=== PATIENT | male | born 1955 | race African-American/Black ===

== ENCOUNTER 2018-03-29 08:31 | Observation (INO) ==
[2018-03-29] MEDS ORDERED: Sod Chloride 0.9% Inj 1,000 ML IV.SIG ONE (08:49)
[2018-03-29] MEDS ORDERED: Morphine Sulfate Inj 8 MG/ML Vial IV.PUSH ONE (08:49)
--- NOTE | 2018-03-29 09:13 | ED ---
HPI General Chief Complaint: Abdominal Pain Stated Complaint: Abd pain Time Seen by Provider: 03/29/18 08:43 Source: patient Mode of arrival: ambulatory Limitations: no limitations History of Present Illness HPI narrative: 61 yo M c/o abdominal pain on the right side starting at approx 4am, four hours prior to ED arrival. Pt vomiting once this am. He was able to eat a balogna sandwich this morning. No fever. Similar though less severe pain was experienced approx 4-5 days prior. No diarrhea. Pt denies abnormal/ suspicious foods. Severity moderate. No cp/sob. Pt denies PMH. + Smokes tobacco. Occasional etoh. Related Data Home Medications Medication Instructions Recorded Confirmed duloxetine 60 mg PO DAILY 03/29/18 03/29/18 lisinopril 20 mg PO DAILY 03/29/18 03/29/18 Allergies Allergy/AdvReac Type Severity Reaction Status Date / Time tuberculin,PPD,multi-puncture Allergy Rash Verified 03/29/18 09:12 Review of Systems ROS: all other systems reviewed are negative Constitutional Denies fever(s) [facility] Medical History Medical History Depression (Acute) HTN (hypertension) (Acute) Spontaneous pneumothorax (Acute) Surgical History Surgical History No history of previous surgery (Acute) Social History Social History Substance History: Active Abuse Second Hand Smoke Exposure: Yes Smoking Status: Current every day smoker Tobacco Type: Cigarettes and Cigars How Often Do You Have a Drink Containing Alcohol: 2 to 4 times a month Recent Out of Country Travel within the Last 8 Weeks: No Exam Narrative Exam Narrative: GENERAL: 62 yo M, WNWD, mild distress 2/2 abdominal pain, n/v. SKIN: Focused skin assessment warm/dry. HEAD: Atraumatic. Normocephalic. EYES: Pupils equal and round. No scleral icterus. No injection or drainage. ENT: No nasal bleeding or discharge. Mucous membranes pink and moist. NECK: Trachea midline. No JVD. CARDIOVASCULAR: Regular rate and rhythm. No murmur appreciated. RESPIRATORY: No accessory muscle use. Clear to auscultation. Breath sounds equal bilaterally. GASTROINTESTINAL: Soft. +TTP right abdomen. MUSCULOSKELETAL: No obvious deformities. No clubbing. No cyanosis. No edema. NEUROLOGICAL: Awake and alert. No obvious cranial nerve deficits. Motor grossly within normal limits. Normal speech. PSYCHIATRIC: Appropriate mood and affect; insight and judgment normal. Course Initial Documented Vital Signs Temperature 97.5 F L 03/29/18 08:39 Pulse Rate 84 03/29/18 08:39 Respiratory Rate 16 03/29/18 08:39 Blood Pressure 115/79 03/29/18 08:39 Pulse Oximetry 97 03/29/18 08:39 Last Documented Vital Signs Temperature 97.5 F L 03/29/18 08:39 Pulse Rate 97 H 03/29/18 10:59 Respiratory Rate 21 03/29/18 10:59 Blood Pressure 158/94 H 03/29/18 10:59 Pulse Oximetry 97 03/29/18 10:59 Medical Decision Making MDM Narrative Medical decision making narrative: Pt has acute appendicitis. d/w Dr Capellan for general surgery: admit to medicine with plan for OR today. Abdomen is TTP on right side. No peritonitis. Zosyn 4.5g x 1 in ED. Last PO 2AM yesterday. Medical Screen Exam Complete: Yes Emergency Medical Condition: Yes Differential Diagnosis Differential Diagnosis: Constipation, Gastritis, Acute Cholecystitis, Biliary Colic, Pancreatitis, PEREIRA, Hepatitis, Bowel Obstruction, Cystitis, Mesenteric Ischemia, AAA, Appendicitis, Renal Stone/Hydronephrosis, GERD, perforated viscous Lab Data Result diagrams: 03/29/18 08:55 03/29/18 08:55 Lab Results 03/29/18 03/29/18 03/29/18 Range/Units 08:55 08:55 10:55 WBC 8.8 (4.0-11.0) th/mm3 RBC 5.16 (4.50-5.90) mil/mm3 Hgb 15.3 (13.0-17.0) gm/dL Hct 45.7 (39.0-51.0) % MCV 88.5 (80.0-100.0) fL MCH 29.7 (27.0-34.0) pg MCHC 33.6 (32.0-36.0) % RDW 17.9 H (11.6-17.2) % Plt Count 270 (150-450) th/mm3 MPV 6.8 L (7.0-11.0) fL Neut % (Auto) 60.1 (16.0-70.0) % Lymph % (Auto) 28.2 (9.0-44.0) % [place] % (Auto) 10.9 H (0.0-8.0) % Eos % (Auto) 0.4 (0.0-4.0) % Baso % (Auto) 0.4 (0.0-2.0) % Neut # (Auto) 5.3 (1.8-7.7) th/mm3 Lymph # (Auto) 2.5 (1.0-4.8) th/mm3 Murray # (Auto) 1.0 H (0.0-0.9) th/mm3 Eos # (Auto) 0.0 (0.0-0.4) th/mm3 Baso # (Auto) 0.0 (0.0-0.2) th/mm3 WBC Differential . Differential Comment Auto diff final Sodium 133 L (136-145) meq/L Potassium 4.0 (3.5-5.1) meq/L Chloride 103 (98-107) meq/L Carbon Dioxide 21.0 (21.0-32.0) meq/L Anion Gap 9 (5-15) meq/L BUN 18 (7-18) mg/dL Creatinine 1.34 H (0.60-1.30) mg/dL Estimated GFR 54 L (>89) mL/min Random Glucose 108 H (74-106) mg/dL Calcium 9.5 (8.5-10.1) mg/dL Magnesium 1.9 (1.5-2.5) mg/dL Total Bilirubin 0.7 (0.2-1.0) mg/dL AST 28 (15-37) U/L ALT 31 (12-78) U/L Alkaline Phosphatase 67 (45-117) U/L Total Protein 9.7 H (6.4-8.2) g/dL Albumin 4.2 (3.4-5.0) g/dL Lipase 507 H (73-393) U/L Urine Color Straw (Yellw/Straw) Urine Clarity Clear (Clear) Urine pH 7.0 (5.0-8.5) Ur Specific [place] 1.015 (1.002-1.035) Urine Protein Negative (Neg-Trace) mg/dL Urine Glucose (UA) Negative (Negative) mg/dL Urine Ketones Trace H (Negative) mg/dL Urine Occult Blood Negative (Negative) Urine Nitrate Negative (Negative) Urine Bilirubin Negative (Negative) Urine Urobilinogen Less than 2 (Less than 2) mg/dL Ur Leukocyte Esterase Negative (Negative) Micro UA Comment Culture not ind Ur Microscopic Review Not Reportable Urine Culture Comments Culture not ind Imaging Data Radiologist's impression: Abdomen/Pelvis CT 03/29/18 08:49 CONCLUSION: 1. Thickened appendix with mild submucosal edema characteristic of early appendicitis. No evidence of abscess or perforation. 2. Otherwise unremarkable exam. Discharge Plan Discharge Order Discharge Orders: ED Use Only Admit Order (Routine); Ordered 03/29/18 Ordered By: Lon Grimes Physicians Team ED Provider: Lon Grimes Primary Care Provider: [facility] Attending Provider: Naveed Marcelo Other Providers: Yayo Capellan Rxs /Orders / Referrals /Forms Prescriptions: No Action lisinopril 20 mg Tablet 20 mg PO DAILY RF: 0 duloxetine 60 mg Capsule,Delayed Release(Dr/Ec) 60 mg PO DAILY RF: 0 Status ED Status: Admitted Patient
[2018-03-29 09:14] LABS: Baso % (Auto) 0.4 % (0.0-2.0); Eos % (Auto) 0.4 % (0.0-4.0); Hematocrit 45.7 % (39.0-51.0); Hemoglobin 15.3 gm/dL (13.0-17.0); Lymph # (Auto) 2.5 th/mm3 (1.0-4.8); Lymph % (Auto) 28.2 % (9.0-44.0); Mean Corpuscular HGB Conc 33.6 % (32.0-36.0); Mean Corpuscular Hemoglobin 29.7 pg (27.0-34.0); Mean Corpuscular Volume 88.5 fL (80.0-100.0); Mean Platelet Volume 6.8 fL (7.0-11.0); Mono % (Auto) 10.9 % (0.0-8.0); Neut # (Auto) 5.3 th/mm3 (1.8-7.7); Neut % (Auto) 60.1 % (16.0-70.0); Platelet Count 270 th/mm3 (150-450); Red Blood Count 5.16 mil/mm3 (4.50-5.90); Red Cell Distribution Width 17.9 % (11.6-17.2); White Blood Count 8.8 th/mm3 (4.0-11.0)
[2018-03-29 09:33] LABS: Albumin 4.2 g/dL (3.4-5.0); Anion Gap 9 meq/L (5-15); Aspartate Aminotransferase 28 U/L (15-37); Blood Urea Nitrogen 18 mg/dL (7-18); Calcium 9.5 mg/dL (8.5-10.1); Chloride 103 meq/L (98-107); Glomerular Filtration Rate 54 mL/min (>89); Glucose,Random 108 mg/dL (74-106); Lipase 507 U/L (73-393); Magnesium 1.9 mg/dL (1.5-2.5); Sodium 133 meq/L (136-145)
[2018-03-29 09:34] LABS: Alanine Aminotransferase 31 U/L (12-78)
[2018-03-29 09:36] LABS: Alkaline Phosphatase 67 U/L (45-117); Total Protein 9.7 g/dL (6.4-8.2)
--- NOTE | 2018-03-29 10:18 | CT ---
EXAM DATE: 03/29/2018 9:55 AM EST AGE/SEX: 62 years / Male INDICATIONS: Right lower Abdominal Pain CLINICAL DATA: This is the patient's initial encounter. Patient reports that signs and symptoms have been present for 1 day and indicates a pain score of 8/10. MEDICAL/SURGICAL HISTORY: Hypertension. None. ORAL CONTRAST: No oral contrast ingested. RADIATION DOSE: 8.92 CTDI (mGy) COMPARISON: No prior exams available for comparison. TECHNIQUE: Multiple contiguous axial images were obtained through the abdomen and pelvis following b olus infusion of 94ML ml Omnipaque 350 (iohexol) nonionic water-soluble contrast as a single exam d ose. No oral contrast ingested. Using automated exposure control and adjustment of the mA and/or kV according to patient size, radiation dose was kept as low as reasonably achievable to obtain optimal diagnostic quality images. DICOM format image data is available electronically for review and compar luca. FINDINGS: Lower Lungs: The visualized lower lungs are clear. Liver: The liver has a homogeneous density without space-occupying lesion. There is no dilation of th e biliary tree. Spleen: Homogeneous density without enlargement. Pancreas: Unremarkable without mass or calcification. Kidneys: Normal in size and shape. No evidence of mass or hydronephrosis. Adrenal Glands: Unremarkable. Aorta: The aorta and proximal iliac vessels are grossly unremarkable without aneurysmal dilation. Bowel/Mesentery: The appendix is thickened and demonstrates mild submucosal edema. There is no signif icant periappendiceal inflammation or evidence of rupture. The bowel loops are grossly unremarkable. The cecum and sigmoid colon have a normal configuration. Abdominal Wall: Intact. Retroperitoneum: No evidence of adenopathy in the retrocrural, para-aortic, or deep pelvic regions. Bladder: Contours are smooth. Reproductive Organs: No abnormal masses or calcifications seen. Inguinal: The inguinal region is unremarkable without evidence of adenopathy. Bony Structures: Unremarkable. CONCLUSION: 1. Thickened appendix with mild submucosal edema characteristic of early appendicitis. No evidence o f abscess or perforation. 2. Otherwise unremarkable exam. Electronically signed by: Yovani Santos MD 03/29/2018 10:16 AM EST
[2018-03-29] MEDS ORDERED: Piperacil/Tazo 4.5 GM Premix 4.5 GM/100 ML BAG IV.SIG ONE (10:20)
[2018-03-29] MEDS ORDERED: Sod Chloride 0.9% Inj 1,000 ML IV.SIG SCH ×2 (10:30→11:30)
[2018-03-29] MEDS ORDERED: Morphine Inj 4 MG, Morphine Inj 2 MG IV.PUSH ONE ×2 (10:31)
--- NOTE | 2018-03-29 10:57 | P.HPFP ---
History of Present Illness Primary Care Physician: [facility] <Naveed Marcelo - 03/30/18 15:28> [facility] <Alexy Echols - 03/29/18 10:57> History of Present Illness: Patient is a 62-year-old male with past history of hypertension, hepatitis C, anxiety who presents today with abdominal pain. Reports that he had severe abdominal pain approximately 7 hours prior to admission. He reports it was a sharp and crampy pain on the right side. States it did not feel like a bowel movement pain. He waited for several hours for improvement of symptoms, however the pain continued to increase. And stayed on the right side, increased to an 8 out of 10. Reports it is currently a 4/10 however he recently had pain medication. He reports he has had nausea and emesis x10 today. Denies any blood or red streaks in his vomit. His last bowel movement was 3 days ago, normal, brown, no red or black. Patient reports some mild chills upon entering the hospital. Denies fevers. Denies lightheadedness, dizziness, chest pain, left arm or jaw pain, changes in vision , headache, changes in hearing, shortness of breath, cough, changes in urinary habits. No other complaints today. Past medical: Anxiety Depression BPH Hypertension Arthritis Hepatitis C spontaneous pneumothorax, treated with chest tube Family hx: denies Surgical: Denies Social: occasional alcohol, couple times a week, few beers tobacco: 1/2 PPD since 19, use to smoke 1 PPD MJ, no other drugs Full code <Alexy Echols - 03/29/18 11:33> - Diagnosis (1) Appendicitis (2) REINIER (acute kidney injury) (3) BPH (benign prostatic hyperplasia) (4) HTN (hypertension) (5) Depression <Alexy Echols - 03/29/18 11:26> (1) Acute appendicitis (2) REINIER (acute kidney injury) (3) BPH (benign prostatic hyperplasia) (4) HTN (hypertension) (5) Depression <Naveed Marcelo - 03/30/18 15:28> Inpatient Certification: I certify that the inpatient services were ordered in accordance with Medicare regulations governing the order. This includes certification that hospital inpatient services are reasonable and necessary and in the case of services not specified as inpatient-only under 42 CFR 419.22(n), that they are appropriately provided as inpatient services in accordance to with the 2-midnight benchmark under 43 CFR 412.3(e) <Naveed Marcelo - 03/30/18 15:28> Review of Systems All other systems reviewed negative except as stated in HPI <Alexy Echols - 03/29/18 11:33> PMFSH - History History Provided By: Patient <Alexy Echols - 03/29/18 10:57> - Medical History Medical History: Medical History (Last Updated 03/29/18 @ 09:12 by Lucero Roman, GABRIELLE) Depression HTN (hypertension) Spontaneous pneumothorax <Naveed Marcelo - 03/30/18 15:28> Medical History (Last Updated 03/29/18 @ 09:12 by Lucero Roman, RN) Depression HTN (hypertension) Spontaneous pneumothorax <Alexy Echols - 03/29/18 10:57> - Surgical History Surgical History: Surgical History (Last Updated 03/29/18 @ 09:12 by Lucero Roman, GABRIELLE) No history of previous surgery <Naveed Marcelo - 03/30/18 15:28> Surgical History (Last Updated 03/29/18 @ 09:12 by Lucero Roman, GABRIELLE) No history of previous surgery <Alexy Echols - 03/29/18 10:57> - Tobacco History Second Hand Smoke Exposure: Yes <Alexy Echols - 03/29/18 10:57> Tobacco Use In Past 30 Days: Yes <Alexy Echols - 03/29/18 10:57> Smoking Status: Current every day smoker <Alexy Echols - 03/29/18 10:57> Tobacco Type: Cigarettes, Cigars <Alexy Echols - 03/29/18 10:57> - Alcohol History How Often Do You Have a Drink Containing Alcohol: 2 to 4 times a month <Alexy Echols - 03/29/18 10:57> - Substance Use History Substance History: Active Abuse <Alexy Echols - 03/29/18 10:57> - Substance Use Type Marijuana Status: Active <Alexy Echols - 03/29/18 10:57> Route Used: Inhalation <Alexy Echols - 03/29/18 10:57> - Travel History Recent Travel Out of the Country Within the Last 8 Weeks: No <Alexy Echols - 03/29/18 10:57> - Immunization History Tetanus Immunization: >5 Years <Alexy Echols - 03/29/18 10:57> Medications and Allergies Allergies Allergy/AdvReac Type Severity Reaction Status Date / Time tuberculin,PPD,multi-puncture Allergy Rash Verified 03/29/18 09:12 <Naveed Marcelo - 03/30/18 15:28> Home Medications Medication Instructions Recorded Confirmed Type acetaminophen 325 mg PO QID PRN 03/29/18 03/29/18 History amlodipine 5 mg PO DAILY 03/29/18 03/29/18 History aspirin 81 mg PO DAILY 03/29/18 03/29/18 History cetirizine 10 mg PO DAILY 03/29/18 03/29/18 History duloxetine 60 mg PO DAILY 03/29/18 03/29/18 History hydroxyzine pamoate 100 mg PO Q6HR PRN 03/29/18 03/29/18 History lisinopril 40 mg PO DAILY 03/29/18 03/29/18 History tamsulosin 0.4 mg PO DAILY 03/29/18 03/29/18 History <Naveed Marcelo - 03/30/18 15:28> Active Medications: Active Medications Acetaminophen (Tylenol) 650 mg PO Q4H PRN PRN Reason: Temp > 100.4 Hydrocodone Bitart/Acetaminophen ([place] 5/325) 1 tab PO Q4H PRN PRN Reason: PAIN SCALE 3 TO 5 Hydrocodone Bitart/Acetaminophen ([place] 7.5/325) 1 tab PO Q4H PRN PRN Reason: PAIN SCALE 6 TO 10 Duloxetine HCl (Cymbalta) 60 mg PO DAILY [facility] Last Admin: 03/30/18 09:18 Dose: 60 mg Flumazenil (Romazecon Inj) 0.2 mg IV.PUSH Q1M PRN PRN Reason: OVERSEDATION Haloperidol Lactate (Haldol Inj) 1 mg IV.PUSH Q15M PRN PRN Reason: for severe agitation Sodium Chloride (1/2 Normal Saline Inj) 1,000 mls @ 125 mls/hr IV.CONT .Q8H [facility] Last Admin: 03/30/18 13:03 Dose: 125 mls/hr Lactated Ringer's (Lr 1000 Ml Inj) 1,000 mls @ 30 mls/hr IV.SIG .Q24H [facility] Stop: 03/30/18 15:59 Lisinopril (Prinivil) 20 mg PO DAILY [facility] Last Admin: 03/30/18 09:18 Dose: 20 mg Lorazepam (Ativan) 1 mg PO Q4H PRN PRN Reason: for CIWA 8-10 Lorazepam (Ativan) 2 mg PO Q2H PRN PRN Reason: for CIWA 11-14 Lorazepam (Ativan Inj) 2 mg IV.PUSH Q2H PRN PRN Reason: for CIWA 11-14 Lorazepam (Ativan Inj) 2 mg IV.PUSH Q1H PRN PRN Reason: for CIWA 15-20 Lorazepam (Ativan Inj) 2 mg IV.PUSH Q15M PRN PRN Reason: for CIWA > 20 Lorazepam (Ativan Inj) 1 mg IV.PUSH Q4H PRN PRN Reason: for CIWA 8-10 Metoprolol Tartrate (Lopressor) 25 mg PO COMPLIANCE CONSULTANT [facility] Stop: 03/30/18 23:59 Miscellaneous Information ([facility] [place] [facility]) 1 each OTHER UNSCH PRN PRN Reason: SEE LABEL COMMENTS Stop: 03/30/18 20:51 Morphine Sulfate (Morphine Inj) 4 mg IV.PUSH Q3H PRN PRN Reason: BREAKTHROUGH PAIN Naloxone HCl (Narcan Inj) 0.4 mg IV.PUSH UNSCH PRN PRN Reason: SEE LABEL COMMENTS Naloxone HCl (Narcan Inj) 0.4 mg IV.PUSH UNSCH PRN PRN Reason: SEE LABEL COMMENTS Ondansetron HCl (Zofran Inj) 4 mg IV.PUSH Q6H PRN PRN Reason: NAUSEA OR VOMITING Sodium Chloride (Ns Flush) 2 ml IV.FLUSH PRN PRN PRN Reason: FLUSH AFTER USING IV ACCESS Sodium Chloride (Ns Flush) 2 ml IV.FLUSH BID [facility] Last Admin: 03/30/18 09:18 Dose: Not Given <Naveed Marcelo - 03/30/18 15:28> Active Medications Piperacillin/Tazobactam/Dextrose (Zosyn 4.5 Gm Premix) 4.5 gm in 100 mls @ 200 mls/hr IV.SIG ONCE ONE Stop: 03/29/18 10:49 Sodium Chloride (Ns Inj) 1,000 mls @ 1,000 mls/hr IV.SIG BOLUS BETO Stop: 03/29/18 11:29 Sodium Chloride (Ns Flush) 2 ml IV.FLUSH PRN PRN PRN Reason: FLUSH AFTER USING IV ACCESS <Alexy Echols - 03/29/18 10:57> Exam Vital signs: Vital Signs 03/29/18 16:00 03/29/18 19:00 03/29/18 20:50 Temperature 98.6 F 98.2 F Pulse Rate 90 75 Respiratory Rate 17 18 14 Blood Pressure 142/84 H 191/103 H Pulse Oximetry 97 100 03/29/18 21:00 03/29/18 21:15 03/29/18 21:30 Temperature 98.8 F Pulse Rate 70 75 79 Respiratory Rate 14 12 16 Blood Pressure 143/83 H 132/76 129/76 Pulse Oximetry 99 95 95 03/29/18 21:45 03/30/18 00:00 03/30/18 04:00 Temperature 97.8 F 97.9 F 98.4 F Pulse Rate 83 98 H 105 H Respiratory Rate 16 17 18 Blood Pressure 140/77 152/86 H 144/83 H Pulse Oximetry 94 L 96 96 03/30/18 08:00 03/30/18 12:35 Temperature 98.2 F 98.5 F Pulse Rate 87 98 H Respiratory Rate 18 17 Blood Pressure 148/89 H 128/75 Pulse Oximetry 97 97 Intake & Output 03/29/18 03/30/18 03/30/18 18:59 06:59 18:59 Intake Total 3100 / 3100 3260 / 3260 800 / 800 Output Total 650 / 650 Balance 3100 / 3100 2610 / 2610 800 / 800 Weight 73.8 kg Intake: IV 3100 / 3100 2000 / 2000 800 / 800 1/2 Normal Saline Inj 1,000 ML 2000 / 2000 800 / 800 @ 125 mls/hr IV.CONT .Q8H BETO Rx#:[id number] Zosyn 4.5 GM Premix 4.5 gm In 100 / 100 100 ml @ 200 mls/hr IV.SIG ONCE ONE Rx#:[id number] NS Inj 1,000 ML @ 1000 mls/hr 3000 / 3000 IV.SIG BOLUS BETO Rx#:[id number] Oral 360 / 360 Anesthesia Amount 900 / 900 Output: Urine 650 / 650 Other: # Voids 4 Weight On Admission 73.8 kg <Naveed Marcelo - 03/30/18 15:28> Vital Signs 03/29/18 08:39 Temperature 97.5 F L Pulse Rate 84 Respiratory Rate 16 Blood Pressure 115/79 Pulse Oximetry 97 Intake & Output 03/28/18 03/29/18 03/29/18 18:59 06:59 18:59 Intake Total 1000 / 1000 Balance 1000 / 1000 Weight 81.647 kg Intake: IV 1000 / 1000 NS Inj 1,000 ML @ Wide Open IV. 1000 / 1000 SIG BOLUS ONE Rx#:[id number] <Alexy Echols - 03/29/18 10:57> Narrative: GENERAL: Laying in bed, no acute distress SKIN: Warm and dry. HEAD: Atraumatic. Normocephalic. EYES: Pupils equal and round. No scleral icterus. No injection or drainage. ENT: No nasal bleeding or discharge. Mucous membranes pink and moist. NECK: Trachea midline. No JVD. CARDIOVASCULAR: Regular rate and rhythm. RESPIRATORY: No accessory muscle use. Clear to auscultation. Breath sounds equal bilaterally. GASTROINTESTINAL: Abdomen soft, nondistended. Hepatic and splenic margins not palpable. Positive McBurney's point. Negative Munoz sign, Rovsing's, rebound. No guarding. MUSCULOSKELETAL: Extremities without clubbing, cyanosis, or edema. No obvious deformities. NEUROLOGICAL: Awake and alert. No obvious cranial nerve deficits. Motor grossly within normal limits. Five out of 5 muscle strength in the arms and legs. Normal speech. PSYCHIATRIC: Appropriate mood and affect; insight and judgment normal. <Alexy Echols A - 03/29/18 11:33> Results - Labs Result diagrams: 03/30/18 06:22 03/30/18 06:22 <Naveed Marcelo - 03/30/18 15:28> Abnormal lab results 03/30/18 03/30/18 Range/Units 06:22 06:22 RBC 4.23 L (4.50-5.90) mil/mm3 Hgb 12.6 L D (13.0-17.0) gm/dL Hct 38.0 L (39.0-51.0) % RDW 17.7 H (11.6-17.2) % Neut % (Auto) 79.2 H (16.0-70.0) % Mills % (Auto) 8.2 H (0.0-8.0) % Neut # (Auto) 8.0 H (1.8-7.7) th/mm3 Estimated GFR 71 L (>89) mL/min Random Glucose 107 H (74-106) mg/dL Calcium 8.3 L D (8.5-10.1) mg/dL Albumin 3.0 L D (3.4-5.0) g/dL Short CBC 03/30/18 Range/Units 06:22 WBC 10.1 (4.0-11.0) th/mm3 Hgb 12.6 L D (13.0-17.0) gm/dL Hct 38.0 L (39.0-51.0) % Plt Count 195 (150-450) th/mm3 BMP 03/30/18 06:22 Sodium 136 Potassium 4.5 Chloride 107 Carbon Dioxide 23.2 BUN 14 Creatinine 1.24 Calcium 8.3 L D Liver Function 03/30/18 Range/Units 06:22 Total Bilirubin 0.6 (0.2-1.0) mg/dL AST 24 (15-37) U/L ALT 23 (12-78) U/L Alkaline Phosphatase 51 (45-117) U/L Albumin 3.0 L D (3.4-5.0) g/dL <Naveed Marcelo - 03/30/18 15:28> Abnormal lab results 03/29/18 03/29/18 Range/Units 08:55 08:55 RDW 17.9 H (11.6-17.2) % MPV 6.8 L (7.0-11.0) fL Mills % (Auto) 10.9 H (0.0-8.0) % Mills # (Auto) 1.0 H (0.0-0.9) th/mm3 Sodium 133 L (136-145) meq/L Creatinine 1.34 H (0.60-1.30) mg/dL Estimated GFR 54 L (>89) mL/min Random Glucose 108 H (74-106) mg/dL Total Protein 9.7 H (6.4-8.2) g/dL Lipase 507 H (73-393) U/L Short CBC 03/29/18 Range/Units 08:55 WBC 8.8 (4.0-11.0) th/mm3 Hgb 15.3 (13.0-17.0) gm/dL Hct 45.7 (39.0-51.0) % Plt Count 270 (150-450) th/mm3 BMP 03/29/18 08:55 Sodium 133 L Potassium 4.0 Chloride 103 Carbon Dioxide 21.0 BUN 18 Creatinine 1.34 H Calcium 9.5 Liver Function 03/29/18 Range/Units 08:55 Total Bilirubin 0.7 (0.2-1.0) mg/dL AST 28 (15-37) U/L ALT 31 (12-78) U/L Alkaline Phosphatase 67 (45-117) U/L Albumin 4.2 (3.4-5.0) g/dL <Alexy Echols - 03/29/18 10:57> - Imaging Impressions Abdomen/Pelvis CT 03/29/18 08:49 CONCLUSION: 1. Thickened appendix with mild submucosal edema characteristic of early appendicitis. No evidence of abscess or perforation. 2. Otherwise unremarkable exam. <Alexy Echols - 03/29/18 10:57> Caprini VTE Risk Assessment Caprini VTE Risk Assessment: Moderate/High Risk (score >= 2) <Alexy Echols - 03/29/18 11:33> Fuadrini Risk Assessment Model: Point Value = 1 Point Value = 2 Point Value = 3 Point Value = 5 Age 41-60 Minor surgery BMI > 25 kg/m2 Swollen legs Varicose veins or History of unexplained or recurrent spontaneous Oral contraceptives or hormone replacement Sepsis (< 1 month) Serious lung disease, including pneumonia (< 1 month) Abnormal pulmonary function Acute myocardial infarction Congestive heart failure (< 1 month) History of inflammatory bowel disease Medical patient at bed rest Age 61-74 Arthroscopic surgery Major open surgery (> 45 min) Laparoscopic surgery (> 45 min) Malignancy Confined to bed (> 72 hours) Immobilizing plaster cast Central venous access Age >= 75 History of VTE Family history of VTE Factor V Leiden Prothrombin [id number] Lupus anticoagulant Anticardiolipin antibodies Elevated serum homocysteine Heparin-induced thrombocytopenia Other congenital or acquired thrombophilia Stroke (< 1 month) Elective arthroplasty Hip, pelvis, or leg fracture Acute spinal cord injury (< 1 month) <Naveed Marcelo - 03/30/18 15:28> Point Value = 1 Point Value = 2 Point Value = 3 Point Value = 5 Age 41-60 Minor surgery BMI > 25 kg/m2 Swollen legs Varicose veins or History of unexplained or recurrent spontaneous Oral contraceptives or hormone replacement Sepsis (< 1 month) Serious lung disease, including pneumonia (< 1 month) Abnormal pulmonary function Acute myocardial infarction Congestive heart failure (< 1 month) History of inflammatory bowel disease Medical patient at bed rest Age 61-74 Arthroscopic surgery Major open surgery (> 45 min) Laparoscopic surgery (> 45 min) Malignancy Confined to bed (> 72 hours) Immobilizing plaster cast Central venous access Age >= 75 History of VTE Family history of VTE Factor V Leiden Prothrombin [id number] Lupus anticoagulant Anticardiolipin antibodies Elevated serum homocysteine Heparin-induced thrombocytopenia Other congenital or acquired thrombophilia Stroke (< 1 month) Elective arthroplasty Hip, pelvis, or leg fracture Acute spinal cord injury (< 1 month) <Alexy Echols - 03/29/18 10:57> Prophylaxis Regimen: Total Risk Factor Score Risk Level Prophylaxis Regimen 0-1 Low Early ambulation 2 Moderate Order ONE of the following: *Sequential Compression Device (SCD) *Heparin 5000 units SQ BID 3-4 Higher Order ONE of the following medications: *Heparin 5000 units SQ TID *Enoxaparin/Lovenox 40 mg SQ daily (WT < 150 kg, CrCl > 30 mL/min) *Enoxaparin/Lovenox 30 mg SQ daily (WT < 150 kg, CrCl > 10-29 mL/min) *Enoxaparin/Lovenox 30 mg SQ BID (WT < 150 kg, CrCl > 30 mL/min) AND/OR *Sequential Compression Device (SCD) 5 or more Highest Order ONE of the following medications: *Heparin 5000 units SQ TID (Preferred with Epidurals) *Enoxaparin/Lovenox 40 mg SQ daily (WT < 150 kg, CrCl > 30 mL/min) *Enoxaparin/Lovenox 30 mg SQ daily (WT < 150 kg, CrCl > 10-29 mL/min) *Enoxaparin/Lovenox 30 mg SQ BID (WT < 150 kg, CrCl > 30 mL/min) AND *Sequential Compression Device (SCD) <Naveed Marcelo - 03/30/18 15:28> Total Risk Factor Score Risk Level Prophylaxis Regimen 0-1 Low Early ambulation 2 Moderate Order ONE of the following: *Sequential Compression Device (SCD) *Heparin 5000 units SQ BID 3-4 Higher Order ONE of the following medications: *Heparin 5000 units SQ TID *Enoxaparin/Lovenox 40 mg SQ daily (WT < 150 kg, CrCl > 30 mL/min) *Enoxaparin/Lovenox 30 mg SQ daily (WT < 150 kg, CrCl > 10-29 mL/min) *Enoxaparin/Lovenox 30 mg SQ BID (WT < 150 kg, CrCl > 30 mL/min) AND/OR *Sequential Compression Device (SCD) 5 or more Highest Order ONE of the following medications: *Heparin 5000 units SQ TID (Preferred with Epidurals) *Enoxaparin/Lovenox 40 mg SQ daily (WT < 150 kg, CrCl > 30 mL/min) *Enoxaparin/Lovenox 30 mg SQ daily (WT < 150 kg, CrCl > 10-29 mL/min) *Enoxaparin/Lovenox 30 mg SQ BID (WT < 150 kg, CrCl > 30 mL/min) AND *Sequential Compression Device (SCD) <Alexy Echols - 03/29/18 10:57> Assessment and Plan - Assessment (1) Appendicitis Code(s): K37 - Unspecified appendicitis Status: Acute Plan: Presents with abdominal pain, found to be appendicitis on CT. No evidence of abscess or perforation. ER physician reports he spoke with Dr. Thorpe who will take him to the ER later today. -N.p.o., OR later today -Morphine pain scale -Monitor for signs and symptoms of acute abdomen (2) REINIER (acute kidney injury) Code(s): N17.9 - Acute kidney failure, unspecified Status: Acute Plan: Creatinine 1.34 on admission. Denies chronic kidney issues. -To receive 1 L bolus in ED, to follow-up with second liter bolus -Maintenance fluids -Follow-up BMP (3) BPH (benign prostatic hyperplasia) Code(s): N40.0 - Benign prostatic hyperplasia without lower urinary tract symptoms Status: Acute Plan: History of BPH, does not remember BPH medication. -May need to add Flomax, may need to call pharmacy (4) HTN (hypertension) Code(s): I10 - Essential (primary) hypertension Status: Acute Plan: History of hypertension. -Continue lisinopril 20 mg daily (5) Depression Code(s): F32.9 - Major depressive disorder, single episode, unspecified Status : Acute Plan: History of depression. -Continue duloxetine 60 mg daily <Alexy Echols - 03/29/18 11:26> (1) Acute appendicitis Code(s): K35.80 - Unspecified acute appendicitis Status: Acute (2) ERINIER (acute kidney injury) Code(s): N17.9 - Acute kidney failure, unspecified Status: Acute (3) BPH (benign prostatic hyperplasia) Code(s): N40.0 - Benign prostatic hyperplasia without lower urinary tract symptoms Status: Acute (4) HTN (hypertension) Code(s): I10 - Essential (primary) hypertension Status: Acute (5) Depression Code(s): F32.9 - Major depressive disorder, single episode, unspecified Status : Acute <Naveed Marcelo - 03/30/18 15:28> - Attending Attestation See the residents documentation for details. I saw and evaluated the patient regarding the webb portions of this evaluation and agree with the residents findings and plans as written. Parts of this note were created using [employer] voice recognition software program. While efforts were made to correct any mistakes made by this software, some mistakes, errors, and omissions may remain in the final note that were not caught when the note was originally created. Plan of care was discussed and agreed upon with the patient as specifically documented in the above note. An opportunity to ask questions with explanation was provided. Patient voiced understanding on all information reviewed and discussed. <Naveed Marcelo - 03/30/18 15:28>
[2018-03-29] MEDS ORDERED: Acetaminophen 325 MG Tablet PO PRN (11:05)
[2018-03-29] MEDS ORDERED: Morphine Sulfate Inj 2 MG/ML Vial IV.PUSH PRN ×2 (11:08)
[2018-03-29] MEDS ORDERED: Naloxone Inj 0.4 MG/ML Vial IV.PUSH PRN (11:08)
[2018-03-29 11:34] LABS: Bilirubin,Urine Negative (Negative); Clarity,Urine Clear (Clear); Color,Urine Straw (Yellw/Straw); Glucose,Urine (UA) Negative (Negative); Leukocyte Esterase,Urine Negative (Negative); Nitrite,Urine Negative (Negative); Specific Gravity,Urine 1.015 (1.002-1.035)
[2018-03-29] MEDS: Sodium Chloride 0.45 % Inj 1,000 ML IV.CONT SCH ×2 (13:16→22:00)
[2018-03-29] MEDS ORDERED: LORazepam 1 MG Tablet PO PRN (14:00)
[2018-03-29] MEDS ORDERED: Haloperidol Inj 5 MG/ML Ampul IV.PUSH PRN (14:00)
[2018-03-29] MEDS ORDERED: Metoprolol Tartrate 25 MG Tablet PO SCH (15:46)
[2018-03-29] MEDS ORDERED: Chlorhexidine Gluconate 2% 1 Pack (2 Cloths) TOPICAL ONE (15:46)
[2018-03-29] MEDS ORDERED: Sodium Chlor 0.9% Inj 500 ML IV.SIG SCH (16:00)
--- NOTE | 2018-03-29 16:29 | MB ---
cc: Yayo Capellan MD DATE: 03/29/2018 REASON FOR CONSULTATION: Possible appendicitis. PERSON REQUESTING CONSULTATION: Dr. Marcelo HISTORY OF PRESENT ILLNESS: The patient is a 62-year-old male who was admitted to [facility] for right lower quadrant pain. The patient was seen in the emergency department and complained of 24 hours of right lower quadrant pain. The patient states he never had pain like this prior and is worse with walking. It does not radiate and is relieved by pain medications in the emergency department. He denies fever, chills, night sweats, nausea, vomiting, diarrhea, constipation, or any other complaints. The patient did undergo an evaluation of the CT scan, which did show some abnormality of the appendix. He is significantly tender over the right lower quadrant, focally. He had no leukocytosis. The patient was admitted for possible appendicitis. General surgery was consulted for evaluation. REVIEW OF SYSTEMS: A 12-point review of systems discussed with the patient and is negative except for the pertinent positives mentioned above in history of present illness. PAST MEDICAL HISTORY: 1. Hypertension. 2. History of spontaneous pneumothorax. PAST SURGICAL HISTORY: No previous abdominal surgeries. ALLERGIES: TUBERCULIN PPD. HOME MEDICATIONS: 1. Duloxetine 2. Lisinopril. SOCIAL HISTORY: The patient smokes everyday cigars and cigarettes. Drinks alcohol occasionally. Denies illicit drug use. Denies traveling out of the country recently. FAMILY HISTORY: Reviewed and noncontributory. PHYSICAL EXAMINATION: VITAL SIGNS: Temperature 97.5 degrees, heart rate 97, blood pressure 158/94, O2 saturation 97%. The patient is a thin male in no acute distress. HEENT: Head is normocephalic, atraumatic. Pupils are round, reactive and accommodating to light. Sclerae are anicteric. Oral cavity is clear. Airway is patent. NECK: Supple. No JVD. No lymphadenopathy. LUNGS: Breath sounds present bilaterally, nonlabored breathing pattern. HEART: Regular rate and rhythm. PMI is nondisplaced. ABDOMEN: Soft, nondistended. Normal bowel sounds. He has focal reproducible tenderness over McBurney's point without peritonitis. No surgical scars. No hernias. No ascites. BACK: No CVA tenderness. EXTREMITIES: No clubbing, cyanosis or edema. Warm and perfused x4 extremities. NEUROLOGIC: The patient is awake and alert and oriented x3. Mood, judgment, and insight are within normal limits. Nonfocal peripheral exam. LABORATORY DATA: White blood cell count 8.8, hemoglobin 15.3. CT scan concerns for thickening of the appendix, possible early appendicitis. ASSESSMENT AND PLAN: The patient is a 62-year-old male with possible early appendicitis. Discussed with the patient the clinical findings as well as the management options. I discussed operative and nonoperative management with the patient. I discussed laparoscopic appendectomy for treatment of appendicitis including the risks, benefits and alternatives, and the surgery complications and technical aspects. I do recommend surgery for a very likely early appendicitis. He is in agreement and would like to proceed with the surgery today. We will proceed to the operating room urgently based on operating room availability. Yayo Capellan MD AWG/te , 02:41 PM , 02:48 PM
[2018-03-29] MEDS: Morphine Inj 4 MG/ML Vial IV.PUSH PRN (17:40)
[2018-03-29] MEDS ORDERED: ceFAZolin 1 GM Premix Inj 0 GM/0 ML PIGGYBACK IV.SIG ONE (19:28)
[2018-03-29] MEDS ORDERED: Bupivacaine/Epinephrine Inj 0.25% 50 ML Vial ONE (19:29)
[2018-03-29] MEDS ORDERED: fentaNYL Citrate Inj 100 MCG/2 ML Ampul ONE (20:59)
--- NOTE | 2018-03-29 21:04 | MP ---
cc: Yayo Capellan MD DATE OF OPERATION: 03/29/2018 PREOPERATIVE DIAGNOSIS: Acute appendicitis. POSTOPERATIVE DIAGNOSIS: Acute suppurative appendicitis. PROCEDURE PERFORMED: Laparoscopic appendectomy. ANESTHESIA: General. ATTENDING SURGEON: Yayo Capellan MD [employer]: Staff. ESTIMATED BLOOD LOSS: Less than 10 mL. COMPLICATIONS: None. FINDINGS: Acute suppurative appendicitis with no other intra-abdominal abnormality. No peritonitis. INDICATIONS: The patient is a 62-year-old male who developed 24 hours of increasing right lower quadrant pain. The patient underwent a CT scan in the emergency department at [facility] that did show mildly dilated appendix, concerning for possible early appendicitis. I had a discussion with the patient about the treatment options including risks, benefits and alternatives to laparoscopic appendectomy for treatment of possible appendicitis. The patient agreed to undergo the procedure. PROCEDURE: The patient was taken to the operating room and placed in the supine position and placed under general endotracheal anesthesia. The patient's abdomen was shaved, prepped and draped in a sterile fashion. Timeout was performed. The abdomen was entered through a Vitaly technique below the umbilicus with a curvilinear incision. We directly placed a 10 mm trocar into the abdomen under direct visualization. We insufflated the abdomen and placed a 5 mm 30-degree camera into the abdominal cavity and surveyed the abdomen. There is no evidence of any intra-abdominal pathology. There is no evidence of any complication from our entry. We then placed 2 additional ports, which were 5 mm ports in the left lower quadrant under visualization of the laparoscope. We were then able to grasp the cecum and retract this upward and we did note the base of the appendix was normal, but about the mid portion of the appendix was mildly thickened and dilated and injected. There is no peritonitis or evidence of rupture or gangrene. We were then able to make a window at the base of the appendix and divide the base of the appendix as it splayed into the cecum with a white load on the [employer] GI stapler. Excellent staple line intact. No evidence of leak. There is a very broad mesentery on the appendix, and this was somewhat retrocecal. We did use 3 additional white loads to take this mesentery completely right up against the base of the appendix, completely this from the tissue. The appendix was placed in an Endo Catch bag and removed from the abdomen through the periumbilical port. We did use some suction to irrigate out the pelvis and right lower quadrant. After all suctioning, it was clear. There was minimal oozing from the retroperitoneal surface, which we used cautery for hemostasis. We had excellent hemostasis. There was no evidence of any complications. We removed the ports under visualization of the laparoscope and expressed pneumoperitoneum. We closed the Vitaly entry site with [id number] Vicryl suture. We closed the skin with 4-0 Monocryl and Dermabond. The patient was discontinued from anesthesia and taken to the PACU in stable condition. The patient tolerated the procedure well and there were no apparent complications and all counts were correct. I was present and scrubbed for the entire procedure. MD JEN Herrera/andrei , 08:46 PM , 08:54 PM
[2018-03-30] MEDS: Sodium Chloride 0.45 % Inj 1,000 ML IV.CONT SCH ×3 (06:00→13:03)
[2018-03-30 07:30] LABS: Baso % (Auto) 0.1 % (0.0-2.0); Hemoglobin 12.6 gm/dL (13.0-17.0); Lymph # (Auto) 1.3 th/mm3 (1.0-4.8); Lymph % (Auto) 12.5 % (9.0-44.0); Mean Corpuscular HGB Conc 33.2 % (32.0-36.0); Mean Corpuscular Hemoglobin 29.8 pg (27.0-34.0); Mean Corpuscular Volume 89.8 fL (80.0-100.0); Mean Platelet Volume 7.1 fL (7.0-11.0); Mono # (Auto) 0.8 th/mm3 (0.0-0.9); Mono % (Auto) 8.2 % (0.0-8.0); Neut % (Auto) 79.2 % (16.0-70.0); Platelet Count 195 th/mm3 (150-450); Red Blood Count 4.23 mil/mm3 (4.50-5.90); Red Cell Distribution Width 17.7 % (11.6-17.2); White Blood Count 10.1 th/mm3 (4.0-11.0)
[2018-03-30 07:59] LABS: Alanine Aminotransferase 23 U/L (12-78); Alkaline Phosphatase 51 U/L (45-117); Anion Gap 6 meq/L (5-15); Aspartate Aminotransferase 24 U/L (15-37); Blood Urea Nitrogen 14 mg/dL (7-18); Calcium 8.3 mg/dL (8.5-10.1); Carbon Dioxide 23.2 meq/L (21.0-32.0); Chloride 107 meq/L (98-107); Glomerular Filtration Rate 71 mL/min (>89); Glucose,Random 107 mg/dL (74-106); Potassium 4.5 meq/L (3.5-5.1); Sodium 136 meq/L (136-145); Total Protein 7.6 g/dL (6.4-8.2)
[2018-03-30] MEDS: Duloxetine 60 MG DR Capsule PO SCH (09:18)
[2018-03-30] MEDS: Lisinopril 20 MG Tablet PO SCH (09:18)
--- NOTE | 2018-03-30 11:44 | P.PNFP ---
Subjective Interval history: Patient is doing much better this morning after surgery on the previous day. He denies fever/chills, nausea/vomiting. He is stretching machine tender frame in his right lower quadrant but not as painful as before surgery. He has not yet passed gas or had a bowel movement. <EkoAlethea U - 03/30/18 14:59> Results - Labs Result diagrams: 03/30/18 06:22 03/30/18 06:22 <Naveed Marcelo - 03/30/18 15:42> Abnormal lab results 03/30/18 03/30/18 Range/Units 06:22 06:22 RBC 4.23 L (4.50-5.90) mil/mm3 Hgb 12.6 L D (13.0-17.0) gm/dL Hct 38.0 L (39.0-51.0) % RDW 17.7 H (11.6-17.2) % Neut % (Auto) 79.2 H (16.0-70.0) % [place] % (Auto) 8.2 H (0.0-8.0) % Neut # (Auto) 8.0 H (1.8-7.7) th/mm3 Estimated GFR 71 L (>89) mL/min Random Glucose 107 H (74-106) mg/dL Calcium 8.3 L D (8.5-10.1) mg/dL Albumin 3.0 L D (3.4-5.0) g/dL Short CBC 03/30/18 Range/Units 06:22 WBC 10.1 (4.0-11.0) th/mm3 Hgb 12.6 L D (13.0-17.0) gm/dL Hct 38.0 L (39.0-51.0) % Plt Count 195 (150-450) th/mm3 BMP 03/30/18 06:22 Sodium 136 Potassium 4.5 Chloride 107 Carbon Dioxide 23.2 BUN 14 Creatinine 1.24 Calcium 8.3 L D Liver Function 03/30/18 Range/Units 06:22 Total Bilirubin 0.6 (0.2-1.0) mg/dL AST 24 (15-37) U/L ALT 23 (12-78) U/L Alkaline Phosphatase 51 (45-117) U/L Albumin 3.0 L D (3.4-5.0) g/dL <Naveed Marcelo - 03/30/18 15:42> Abnormal lab results 03/30/18 03/30/18 Range/Units 06:22 06:22 RBC 4.23 L (4.50-5.90) mil/mm3 Hgb 12.6 L D (13.0-17.0) gm/dL Hct 38.0 L (39.0-51.0) % RDW 17.7 H (11.6-17.2) % Neut % (Auto) 79.2 H (16.0-70.0) % [place] % (Auto) 8.2 H (0.0-8.0) % Neut # (Auto) 8.0 H (1.8-7.7) th/mm3 Estimated GFR 71 L (>89) mL/min Random Glucose 107 H (74-106) mg/dL Calcium 8.3 L D (8.5-10.1) mg/dL Albumin 3.0 L D (3.4-5.0) g/dL Short CBC 03/30/18 Range/Units 06:22 WBC 10.1 (4.0-11.0) th/mm3 Hgb 12.6 L D (13.0-17.0) gm/dL Hct 38.0 L (39.0-51.0) % Plt Count 195 (150-450) th/mm3 BMP 03/30/18 06:22 Sodium 136 Potassium 4.5 Chloride 107 Carbon Dioxide 23.2 BUN 14 Creatinine 1.24 Calcium 8.3 L D Liver Function 03/30/18 Range/Units 06:22 Total Bilirubin 0.6 (0.2-1.0) mg/dL AST 24 (15-37) U/L ALT 23 (12-78) U/L Alkaline Phosphatase 51 (45-117) U/L Albumin 3.0 L D (3.4-5.0) g/dL <Alethea Tom U - 03/30/18 11:44> Physical Exam Vital signs: Vital Signs 03/29/18 16:00 03/29/18 19:00 03/29/18 20:50 Temperature 98.6 F 98.2 F Pulse Rate 90 75 Respiratory Rate 17 18 14 Blood Pressure 142/84 H 191/103 H Pulse Oximetry 97 100 03/29/18 21:00 03/29/18 21:15 03/29/18 21:30 Temperature 98.8 F Pulse Rate 70 75 79 Respiratory Rate 14 12 16 Blood Pressure 143/83 H 132/76 129/76 Pulse Oximetry 99 95 95 03/29/18 21:45 03/30/18 00:00 03/30/18 04:00 Temperature 97.8 F 97.9 F 98.4 F Pulse Rate 83 98 H 105 H Respiratory Rate 16 17 18 Blood Pressure 140/77 152/86 H 144/83 H Pulse Oximetry 94 L 96 96 03/30/18 08:00 03/30/18 12:35 Temperature 98.2 F 98.5 F Pulse Rate 87 98 H Respiratory Rate 18 17 Blood Pressure 148/89 H 128/75 Pulse Oximetry 97 97 Intake & Output 03/29/18 03/30/18 03/30/18 18:59 06:59 18:59 Intake Total 3100 / 3100 3260 / 3260 800 / 800 Output Total 650 / 650 Balance 3100 / 3100 2610 / 2610 800 / 800 Weight 73.8 kg Intake: IV 3100 / 3100 2000 / 2000 800 / 800 1/2 Normal Saline Inj 1,000 ML 2000 / 2000 800 / 800 @ 125 mls/hr IV.CONT .Q8H [facility] Rx#:[id number] Zosyn 4.5 GM Premix 4.5 gm In 100 / 100 100 ml @ 200 mls/hr IV.SIG ONCE ONE Rx#:[id number] NS Inj 1,000 ML @ 1000 mls/hr 3000 / 3000 IV.SIG BOLUS [facility] Rx#:[id number] Oral 360 / 360 Anesthesia Amount 900 / 900 Output: Urine 650 / 650 Other: # Voids 4 Weight On Admission 73.8 kg <Naveed Marcelo - 03/30/18 15:42> Vital Signs 03/29/18 12:00 03/29/18 16:00 03/29/18 19:00 Temperature 97.8 F 98.6 F Pulse Rate 98 H 90 Respiratory Rate 17 17 18 Blood Pressure 174/95 H 142/84 H Pulse Oximetry 98 97 03/29/18 20:50 03/29/18 21:00 03/29/18 21:15 Temperature 98.2 F Pulse Rate 75 70 75 Respiratory Rate 14 14 12 Blood Pressure 191/103 H 143/83 H 132/76 Pulse Oximetry 100 99 95 03/29/18 21:30 03/29/18 21:45 03/30/18 00:00 Temperature 98.8 F 97.8 F 97.9 F Pulse Rate 79 83 98 H Respiratory Rate 16 16 17 Blood Pressure 129/76 140/77 152/86 H Pulse Oximetry 95 94 L 96 03/30/18 04:00 03/30/18 08:00 Temperature 98.4 F 98.2 F Pulse Rate 105 H 87 Respiratory Rate 18 18 Blood Pressure 144/83 H 148/89 H Pulse Oximetry 96 97 Intake & Output 03/29/18 03/30/18 03/30/18 18:59 06:59 18:59 Intake Total 3100 / 3100 3260 / 3260 Output Total 650 / 650 Balance 3100 / 3100 2610 / 2610 Weight 73.8 kg Intake: IV 3100 / 3100 2000 / 1999 1/2 Normal Saline Inj 1,000 ML 1999 / 2000 @ 125 mls/hr IV.CONT .Q8H [facility] Rx#:[id number] Zosyn 4.5 GM Premix 4.5 gm In 100 / 100 100 ml @ 200 mls/hr IV.SIG ONCE ONE Rx#:[id number] NS Inj 1,000 ML @ 1000 mls/hr 3000 / 3000 IV.SIG BOLUS [facility] Rx#:[id number] Oral 360 / 360 Anesthesia Amount 900 / 900 Output: Urine 650 / 650 Other: # Voids 4 Weight On Admission 73.8 kg <Alethea Tom U - 03/30/18 11:44> Narrative: GENERAL: Laying in bed, no acute distress SKIN: Warm and dry. HEAD: Atraumatic. Normocephalic. EYES: Pupils equal and round. No scleral icterus. No injection or drainage. ENT: No nasal bleeding or discharge. Mucous membranes pink and moist. NECK: Trachea midline. No JVD. CARDIOVASCULAR: Regular rate and rhythm. RESPIRATORY: No accessory muscle use. Clear to auscultation. Breath sounds equal bilaterally. GASTROINTESTINAL: Abdomen soft, mildly distended, positive bowel sounds. MUSCULOSKELETAL: Extremities without clubbing, cyanosis, or edema. No obvious deformities. NEUROLOGICAL: Awake and alert. No obvious cranial nerve deficits. Motor grossly within normal limits. PSYCHIATRIC: Appropriate mood and affect; insight and judgment normal. <EkAlethea [place]ar[place] U - 03/30/18 14:59> Assessment and Plan - Assessment (1) Acute appendicitis Code(s): K35.80 - Unspecified acute appendicitis Status: Acute (2) REINIER (acute kidney injury) Code(s): N17.9 - Acute kidney failure, unspecified Status: Acute (3) BPH (benign prostatic hyperplasia) Code(s): N40.0 - Benign prostatic hyperplasia without lower urinary tract symptoms Status: Acute (4) HTN (hypertension) Code(s): I10 - Essential (primary) hypertension Status: Acute (5) Depression Code(s): F32.9 - Major depressive disorder, single episode, unspecified Status : Acute <Naveed Marcelo - 03/30/18 15:42> (1) Acute appendicitis Code(s): K35.80 - Unspecified acute appendicitis Status: Acute Plan: POD 1 laparoscopic appendectomy -Doing well -[place] as needed for pain with morphine IV for breakthrough -Monitor for signs and symptoms of acute abdomen (2) REINIER (acute kidney injury) Code(s): N17.9 - Acute kidney failure, unspecified Status: Acute Plan: Creatinine 1.34 on admission. Resolved to 1.24 this morning -Continue maintenance fluids, DC in the morning if he is eating and drinking adequately -Follow-up BMP (3) BPH (benign prostatic hyperplasia) Code(s): N40.0 - Benign prostatic hyperplasia without lower urinary tract symptoms Status: Acute Plan: -Not currently on any medications -Follow-up outpatient (4) HTN (hypertension) Code(s): I10 - Essential (primary) hypertension Status: Acute Plan: -Continue lisinopril 20 mg daily (5) Depression Code(s): F32.9 - Major depressive disorder, single episode, unspecified Status : Acute Plan: -Continue duloxetine 60 mg daily <JuanAlethea [place] - 03/30/18 14:39> - Assessment and Plan 62-year-old male presented with severe right lower quadrant abdominal pain found to have acute appendicitis. He is postop day 1 laparoscopic appendectomy by general surgery and is currently doing much better. <Alethea Tom - 03/30/18 14:59> Discussed Condition With: Seen and examined with Dr. Marcelo-attending, Dr. Godinez-PGY 1 <Alethea Tom - 03/30/18 14:59> Discharge Planning: Possible discharge home tomorrow pending general surgery recommendations. <Alethea Tom U - 03/30/18 14:59> - Attending Attestation See the residents documentation for details. I saw and evaluated the patient regarding the webb portions of this evaluation and agree with the residents findings and plans as written. Parts of this note were created using [employer] voice recognition software program. While efforts were made to correct any mistakes made by this software, some mistakes, errors, and omissions may remain in the final note that were not caught when the note was originally created. Plan of care was discussed and agreed upon with the patient as specifically documented in the above note. An opportunity to ask questions with explanation was provided. Patient voiced understanding on all information reviewed and discussed. <Naveed Marcelo - 03/30/18 15:42>
[2018-03-30] MEDS: Morphine Inj 4 MG/ML Vial IV.PUSH PRN (13:07)
[2018-03-30] MEDS ORDERED: Morphine Inj 4 MG/ML Vial IV.PUSH PRN (14:45)
[2018-03-30] MEDS ORDERED: Naloxone Inj 0.4 MG/ML Vial IV.PUSH PRN (14:45)
--- NOTE | 2018-03-30 18:49 | ECG ---
Date Performed: 03/29/2018 Time Performed: 16:04:59 PTAGE: 62 years EKG: Sinus rhythm WITH SINUS ARRHYTHMIA NORMAL ECG NO PREVIOUS TRACING DOCTOR: Fabrizio Anderson Interpretating Date/Time 03/30/2018 18:45:46
--- NOTE | 2018-03-30 20:14 | P.PNGS ---
Subjective Patient reports: feels better, tolerating a regular diet Physical Exam Vital signs: Vital Signs 03/29/18 20:50 03/29/18 21:00 03/29/18 21:15 Temperature 98.2 F Pulse Rate 75 70 75 Respiratory Rate 14 14 12 Blood Pressure 191/103 H 143/83 H 132/76 Pulse Oximetry 100 99 95 03/29/18 21:30 03/29/18 21:45 03/30/18 00:00 Temperature 98.8 F 97.8 F 97.9 F Pulse Rate 79 83 98 H Respiratory Rate 16 16 17 Blood Pressure 129/76 140/77 152/86 H Pulse Oximetry 95 94 L 96 03/30/18 04:00 03/30/18 08:00 03/30/18 12:35 Temperature 98.4 F 98.2 F 98.5 F Pulse Rate 105 H 87 98 H Respiratory Rate 18 18 17 Blood Pressure 144/83 H 148/89 H 128/75 Pulse Oximetry 96 97 97 03/30/18 15:54 Temperature 98.3 F Pulse Rate 90 Respiratory Rate 18 Blood Pressure 139/85 Pulse Oximetry 96 Intake & Output 03/30/18 03/30/18 03/31/18 06:59 18:59 06:59 Intake Total 3260 / 3260 2200 / 2200 Output Total 650 / 650 Balance 2610 / 2610 2200 / 2200 Intake: IV 1999 / 1999 800 / 800 1/2 Normal Saline Inj 1,000 ML 2000 / 2000 800 / 800 @ 125 mls/hr IV.CONT .Q8H [facility] Rx#:[id number] Oral 360 / 360 1400 / 1400 Anesthesia Amount 900 / 900 Output: Urine 650 / 650 Other: # Voids 4 # Bowel Movements 0 - Constitutional no acute distress - Routine Abdominal Exam Present: soft, normoactive bowel sounds. Absent: tenderness, distended, rebound , guarding Comments: incision c/d/i Results - Labs 03/30/18 06:22 03/30/18 06:22 Laboratory Results - last 24 hr 03/30/18 03/30/18 06:22 06:22 WBC 10.1 RBC 4.23 L Hgb 12.6 L D Hct 38.0 L MCV 89.8 MCH 29.8 MCHC 33.2 RDW 17.7 H Plt Count 195 MPV 7.1 Neut % (Auto) 79.2 H Lymph % (Auto) 12.5 [place] % (Auto) 8.2 H Eos % (Auto) 0.0 Baso % (Auto) 0.1 Neut # (Auto) 8.0 H Lymph # (Auto) 1.3 [place] # (Auto) 0.8 Eos # (Auto) 0.0 Baso # (Auto) 0.0 WBC Differential . Differential Comment Auto diff final Sodium 136 Potassium 4.5 Chloride 107 Carbon Dioxide 23.2 Anion Gap 6 BUN 14 Creatinine 1.24 Estimated GFR 71 L Random Glucose 107 H Calcium 8.3 L D Total Bilirubin 0.6 AST 24 ALT 23 Alkaline Phosphatase 51 Total Protein 7.6 D Albumin 3.0 L D - Imaging Imaging: ITS Impressions Abdomen/Pelvis CT 03/29/18 08:49 CONCLUSION: 1. Thickened appendix with mild submucosal edema characteristic of early appendicitis. No evidence of abscess or perforation. 2. Otherwise unremarkable exam. Assessment and Plan - Assessment (1) Acute appendicitis Code(s): K35.80 - Unspecified acute appendicitis Status: Acute - Plan 62yo male s/p lap appy for uncomplicated appendicitis, stable. healing well postop pain ok OOB can DC home once pain controlled on oral meds and tolerating some diet/liquids fu with Dr Capellan in 1 week
[2018-03-30] MEDS ORDERED: Sodium Chloride 0.45 % Inj 1,000 ML IV.CONT SCH (21:00)
[2018-03-31 00:32] VITALS: TEMP 97.8; O2SAT 96
[2018-03-31 06:22] LABS: Baso % (Auto) 0.2 % (0.0-2.0); Eos % (Auto) 0.7 % (0.0-4.0); Hematocrit 36.2 % (39.0-51.0); Hemoglobin 12.2 gm/dL (13.0-17.0); Lymph # (Auto) 2.6 th/mm3 (1.0-4.8); Mean Corpuscular HGB Conc 33.8 % (32.0-36.0); Mean Corpuscular Hemoglobin 30.2 pg (27.0-34.0); Mean Corpuscular Volume 89.4 fL (80.0-100.0); Mean Platelet Volume 7.1 fL (7.0-11.0); Mono # (Auto) 0.5 th/mm3 (0.0-0.9); Mono % (Auto) 8.5 % (0.0-8.0); Neut % (Auto) 48.6 % (16.0-70.0); Platelet Count 202 th/mm3 (150-450); Red Blood Count 4.05 mil/mm3 (4.50-5.90); Red Cell Distribution Width 17.2 % (11.6-17.2); White Blood Count 6.1 th/mm3 (4.0-11.0)
[2018-03-31 06:39] LABS: Calcium 8.2 mg/dL (8.5-10.1); Carbon Dioxide 25.2 meq/L (21.0-32.0); Potassium 3.8 meq/L (3.5-5.1)
--- NOTE | 2018-03-31 08:27 | P.PNFP ---
Subjective Interval history: Patient seen and examined this morning. Reports improving pain in abdomen. States is not had a bowel movement yet, however he is passing gas at this time. Denies nausea, vomiting, fever, chills, chest pain, shortness of breath, lightheadedness, dizziness. No acute events overnight. No other complaints today. <Alexy Echols A - 03/31/18 10:12> Results - Labs Result diagrams: 03/31/18 04:55 03/31/18 04:55 <Naveed Marcelo - 04/01/18 13:41> Abnormal lab results 03/31/18 03/31/18 Range/Units 04:55 04:55 RBC 4.05 L (4.50-5.90) mil/mm3 Hgb 12.2 L (13.0-17.0) gm/dL Hct 36.2 L (39.0-51.0) % [place] % (Auto) 8.5 H (0.0-8.0) % Estimated GFR 88 L (>89) mL/min Calcium 8.2 L (8.5-10.1) mg/dL Short CBC 03/31/18 Range/Units 04:55 WBC 6.1 (4.0-11.0) th/mm3 Hgb 12.2 L (13.0-17.0) gm/dL Hct 36.2 L (39.0-51.0) % Plt Count 202 (150-450) th/mm3 BMP 03/31/18 04:55 Sodium 136 Potassium 3.8 Chloride 106 Carbon Dioxide 25.2 BUN 14 Creatinine 1.03 Calcium 8.2 L <Alexy Echols - 03/31/18 08:27> Physical Exam Vital signs: Vital Signs 03/30/18 12:35 03/30/18 15:54 03/30/18 20:00 Temperature 98.5 F 98.3 F 98.1 F Pulse Rate 98 H 90 94 H Respiratory Rate 17 18 17 Blood Pressure 128/75 139/85 129/76 Pulse Oximetry 97 96 95 03/31/18 00:00 Temperature 97.8 F Pulse Rate 89 Respiratory Rate 17 Blood Pressure 127/77 Pulse Oximetry 96 Intake & Output 03/30/18 03/31/18 03/31/18 18:59 06:59 18:59 Intake Total 2200 / 2200 1800 / 1800 Output Total 1300 / 1300 Balance 2200 / 2200 500 / 500 Weight 73.8 kg Intake: IV 800 / 800 1000 / 1000 1/2 Normal Saline Inj 1,000 ML 800 / 800 1000 / 1000 @ 125 mls/hr IV.CONT .Q8H [facility] Rx#:[id number] Oral 1400 / 1400 800 / 800 Output: Urine 1300 / 1300 Other: # Voids 4 # Bowel Movements 0 <Alexy Echols - 03/31/18 08:27> Narrative: GENERAL: Laying in bed, no acute distress SKIN: Warm and dry. Multiple laparoscopic incision sites on abdomen, without erythema/warmth/induration/discharge. HEAD: Atraumatic. Normocephalic. EYES: Pupils equal and round. No scleral icterus. No injection or drainage. ENT: No nasal bleeding or discharge. Mucous membranes pink and moist. NECK: Trachea midline. No JVD. CARDIOVASCULAR: Regular rate and rhythm. RESPIRATORY: No accessory muscle use. Clear to auscultation. Breath sounds equal bilaterally. GASTROINTESTINAL: Abdomen soft, mildly distended, positive bowel sounds. MUSCULOSKELETAL: Extremities without clubbing, cyanosis, or edema. No obvious deformities. NEUROLOGICAL: Awake and alert. No obvious cranial nerve deficits. Motor grossly within normal limits. PSYCHIATRIC: Appropriate mood and affect; insight and judgment normal. <Alexy Echols A - 03/31/18 10:12> Assessment and Plan - Assessment (1) Acute appendicitis Code(s): K35.80 - Unspecified acute appendicitis Status: Acute (2) REINIER (acute kidney injury) Code(s): N17.9 - Acute kidney failure, unspecified Status: Acute (3) BPH (benign prostatic hyperplasia) Code(s): N40.0 - Benign prostatic hyperplasia without lower urinary tract symptoms Status: Acute (4) HTN (hypertension) Code(s): I10 - Essential (primary) hypertension Status: Acute (5) Depression Code(s): F32.9 - Major depressive disorder, single episode, unspecified Status : Acute <Naveed Marcelo - 04/01/18 13:41> (1) Acute appendicitis Code(s): K35.80 - Unspecified acute appendicitis Status: Acute Plan: POD 2 laparoscopic appendectomy -Doing well -[place] as needed for pain with morphine IV for breakthrough -Monitor for signs and symptoms of acute abdomen (2) REINIER (acute kidney injury) Code(s): N17.9 - Acute kidney failure, unspecified Status: Acute Plan: Creatinine 1.34 on admission. Improved -P.o. fluids -Follow-up BMP (3) BPH (benign prostatic hyperplasia) Code(s): N40.0 - Benign prostatic hyperplasia without lower urinary tract symptoms Status: Acute Plan: -Not currently on any medications -Follow-up outpatient (4) HTN (hypertension) Code(s): I10 - Essential (primary) hypertension Status: Acute Plan: -Continue lisinopril 20 mg daily (5) Depression Code(s): F32.9 - Major depressive disorder, single episode, unspecified Status : Acute Plan: -Continue duloxetine 60 mg daily <Alexy Echols - 03/31/18 10:06> - Assessment and Plan 62-year-old male presented with severe right lower quadrant abdominal pain found to have acute appendicitis. He is postop day 1 laparoscopic appendectomy by general surgery and is currently doing much better. <Alexy Echols - 03/31/18 10:12> - Attending Attestation See the residents documentation for details. I saw and evaluated the patient regarding the webb portions of this evaluation and agree with the residents findings and plans as written. Parts of this note were created using [employer] voice recognition software program. While efforts were made to correct any mistakes made by this software, some mistakes, errors, and omissions may remain in the final note that were not caught when the note was originally created. Plan of care was discussed and agreed upon with the patient as specifically documented in the above note. An opportunity to ask questions with explanation was provided. Patient voiced understanding on all information reviewed and discussed. <Naveed Marcelo - 04/01/18 13:41>
[2018-03-31 09:18] VITALS: BP 141/84; PULSE 70; RESP 18
[2018-03-31] MEDS: Lisinopril 20 MG Tablet PO SCH (09:38)
[2018-03-31] MEDS: Duloxetine 60 MG DR Capsule PO SCH (09:38)
--- NOTE | 2018-03-31 10:45 | P.PNGS ---
Subjective Interval history: Pain much better today Tolerated breakfast Physical Exam Vital signs: Vital Signs 03/30/18 12:35 03/30/18 15:54 03/30/18 20:00 Temperature 98.5 F 98.3 F 98.1 F Pulse Rate 98 H 90 94 H Respiratory Rate 17 18 17 Blood Pressure 128/75 139/85 129/76 Pulse Oximetry 97 96 95 03/31/18 00:00 03/31/18 08:00 Temperature 97.8 F 97.8 F Pulse Rate 89 70 Respiratory Rate 17 18 Blood Pressure 127/77 141/84 H Pulse Oximetry 96 96 Intake & Output 03/30/18 03/31/18 03/31/18 18:59 06:59 18:59 Intake Total 2200 / 2200 1800 / 1800 Output Total 1300 / 1300 Balance 2200 / 2200 500 / 500 Weight 73.8 kg Intake: IV 800 / 800 1000 / 1000 1/2 Normal Saline Inj 1,000 ML 800 / 800 1000 / 1000 @ 125 mls/hr IV.CONT .Q8H [facility] Rx#:[id number] Oral 1400 / 1400 800 / 800 Output: Urine 1300 / 1300 Other: # Voids 4 # Bowel Movements 0 Narrative: Alert and awake Abd: incision sites c/d/i; skin glue in place mild RLQ tenderness Results - Labs 03/31/18 04:55 03/31/18 04:55 Laboratory Results - last 24 hr 03/31/18 03/31/18 04:55 04:55 WBC 6.1 RBC 4.05 L Hgb 12.2 L Hct 36.2 L MCV 89.4 MCH 30.2 MCHC 33.8 RDW 17.2 Plt Count 202 MPV 7.1 Neut % (Auto) 48.6 Lymph % (Auto) 42.0 [place] % (Auto) 8.5 H Eos % (Auto) 0.7 Baso % (Auto) 0.2 Neut # (Auto) 3.0 Lymph # (Auto) 2.6 [place] # (Auto) 0.5 Eos # (Auto) 0.0 Baso # (Auto) 0.0 WBC Differential . Differential Comment Auto diff final Sodium 136 Potassium 3.8 Chloride 106 Carbon Dioxide 25.2 Anion Gap 5 BUN 14 Creatinine 1.03 Estimated GFR 88 L Random Glucose 91 Calcium 8.2 L - Imaging Imaging: ITS Impressions Abdomen/Pelvis CT 03/29/18 08:49 CONCLUSION: 1. Thickened appendix with mild submucosal edema characteristic of early appendicitis. No evidence of abscess or perforation. 2. Otherwise unremarkable exam. Assessment and Plan - Assessment (1) Acute appendicitis Code(s): K35.80 - Unspecified acute appendicitis Status: Acute Plan: 62 year old male POD2 lap appy -Pain controlling -Tolerating regular diet -OOB -GS clear for DC -[place] rx left on chart
--- NOTE | 2018-03-31 10:53 | P.DS ---
<Alexy Echols - Last Filed: 03/31/18 10:51> Date of admission: 03/29/18 10:47 Primary care physician: [facility] Brief History from admission: Patient is a 62-year-old male with past history of hypertension, hepatitis C, anxiety who presents today with abdominal pain. Reports that he had severe abdominal pain approximately 7 hours prior to admission. He reports it was a sharp and crampy pain on the right side. States it did not feel like a bowel movement pain. He waited for several hours for improvement of symptoms, however the pain continued to increase. And stayed on the right side, increased to an 8 out of 10. Reports it is currently a 4/10 however he recently had pain medication. He reports he has had nausea and emesis x10 today. Denies any blood or red streaks in his vomit. His last bowel movement was 3 days ago, normal, brown, no red or black. Patient reports some mild chills upon entering the hospital. Denies fevers. Denies lightheadedness, dizziness, chest pain, left arm or jaw pain, changes in vision, headache, changes in hearing, shortness of breath, cough, changes in urinary habits. No other complaints today. Past medical: Anxiety Depression BPH Hypertension Arthritis Hepatitis C spontaneous pneumothorax, treated with chest tube Family hx: denies Surgical: Denies Social: occasional alcohol, couple times a week, few beers tobacco: 1/2 PPD since 19, use to smoke 1 PPD MJ, no other drugs Full code DS: Diagnosis - Discharge Diagnosis (1) Acute appendicitis Status: Acute (2) REINIER (acute kidney injury) Status: Acute (3) BPH (benign prostatic hyperplasia) Status: Acute (4) HTN (hypertension) Status: Acute (5) Depression Status: Acute DS: Medications - Discharge Medications Prescriptions: hydrocodone-acetaminophen 1 tab PO Q4H PRN #18 tab PRN Reason: acute post op pain exception DS: Summary Hospital Course: 62-year-old male who presented on 03/29/18 for abdominal pain. Found to have appendicitis on CT. Appendectomy performed on 03/29/18. Patient discharged on 03/31/18 with no significant acute complaints. - Time Spent with Patient Total time spent providing and/or coordinating discharge services: Less than 30 minutes - Quality: VTE Deep Vein Thrombosis/Pulmonary Embolism Present on Admission: No Exam Vital signs: Vital Signs 03/30/18 12:35 03/30/18 15:54 03/30/18 20:00 Temperature 98.5 F 98.3 F 98.1 F Pulse Rate 98 H 90 94 H Respiratory Rate 17 18 17 Blood Pressure 128/75 139/85 129/76 Pulse Oximetry 97 96 95 03/31/18 00:00 03/31/18 08:00 Temperature 97.8 F 97.8 F Pulse Rate 89 70 Respiratory Rate 17 18 Blood Pressure 127/77 141/84 H Pulse Oximetry 96 96 Intake & Output 03/30/18 03/31/18 03/31/18 18:59 06:59 18:59 Intake Total 2200 / 2200 1800 / 1800 Output Total 1300 / 1300 Balance 2200 / 2200 500 / 500 Weight 73.8 kg Intake: IV 800 / 800 1000 / 1000 1/2 Normal Saline Inj 1,000 ML 800 / 800 1000 / 1000 @ 125 mls/hr IV.CONT .Q8H BETO Rx#:[id number] Oral 1400 / 1400 800 / 800 Output: Urine 1300 / 1300 Other: # Voids 4 # Bowel Movements 0 Results Procedures completed during hospitalization: Appendectomy 03/29/18 Labs on day of discharge: Labs from last 24 hours 03/31/18 03/31/18 04:55 04:55 WBC 6.1 RBC 4.05 L Hgb 12.2 L Hct 36.2 L MCV 89.4 MCH 30.2 MCHC 33.8 RDW 17.2 Plt Count 202 MPV 7.1 Neut % (Auto) 48.6 Lymph % (Auto) 42.0 Barton % (Auto) 8.5 H Eos % (Auto) 0.7 Baso % (Auto) 0.2 Neut # (Auto) 3.0 Lymph # (Auto) 2.6 Barton # (Auto) 0.5 Eos # (Auto) 0.0 Baso # (Auto) 0.0 WBC Differential . Differential Comment Auto diff final Sodium 136 Potassium 3.8 Chloride 106 Carbon Dioxide 25.2 Anion Gap 5 BUN 14 Creatinine 1.03 Estimated GFR 88 L Random Glucose 91 Calcium 8.2 L - Impressions ITS Impressions Abdomen/Pelvis CT 03/29/18 08:49 CONCLUSION: 1. Thickened appendix with mild submucosal edema characteristic of early appendicitis. No evidence of abscess or perforation. 2. Otherwise unremarkable exam. <Naveed Marcelo - Last Filed: 04/01/18 13:51> Date of admission: 03/29/18 10:47 Primary care physician: [facility] DS: Diagnosis - Discharge Diagnosis (1) Acute appendicitis Status: Acute (2) REINIER (acute kidney injury) Status: Acute (3) BPH (benign prostatic hyperplasia) Status: Acute (4) HTN (hypertension) Status: Acute (5) Depression Status: Acute DS: Summary - Time Spent with Patient Total time spent providing and/or coordinating discharge services: Results - Impressions ITS Impressions Abdomen/Pelvis CT 03/29/18 08:49 CONCLUSION: 1. Thickened appendix with mild submucosal edema characteristic of early appendicitis. No evidence of abscess or perforation. 2. Otherwise unremarkable exam. Discharge Plan - Discharge Order Discharge Orders: Discharge Order (Routine); Ordered 03/31/18 Ordered By: Alexy Echols General Surgery Clear for Discharge (Routine); Ordered 03/30/18 Ordered By: Yayo Capellan - Physicians Team Primary Care Provider: [facility] Attending Provider: Naveed Marcelo Other Providers: Yayo Capellan MD
== END 2018-03-31 12:04 | disposition home or self-care (01) ==
LOC: NEPE 08:31 → INTOOBSV 10:47 → NEDA 10:47 → N07 12:21
PROVIDERS: ADMIT Family Medicine; ATTEND Family Medicine
PROC: LAPAPPY (ICD-10-PCS; 2018-03-29 19:42)